=== PATIENT | male | born 1980 | race Caucasian/White ===

== ENCOUNTER 2021-02-09 14:23 | Emergency (ER) | payer OTHER ==
[2021-02-09 16:31] LABS: HEMOGLOBIN 17.4 gm/dl (14.0-17.5); RED BLOOD COUNT 5.72 M/UL (4.20-5.50); WHITE BLOOD COUNT 7.1 K/UL (4.5-11.0)
[2021-02-09 16:56] LABS: BUN/CREATININE RATIO 29 (0-10)
[2021-02-09] MEDS ORDERED: FLORASTOR250 MG PO (18:38)
[2021-02-09] MEDS ORDERED: ZOFRAN ODT 4 MG4 MG SL (18:38)
== END 2021-02-09 19:15 | disposition home or self-care (01) ==
LOC: ER1 14:23
PROVIDERS: Emergency Medicine
DX: K52.9 Noninfective gastroenteritis and colitis, unspecified (principal); F17.200 Nicotine dependence, unspecified, uncomplicated; Z20.822 Contact with and (suspected) exposure to COVID-19
CPT/HCPCS: 71045; 80053; 83605; 83735; 84100; 85025; 87040; 96374; 96376; 99284; J2405; Q9967; U0002

== ENCOUNTER 2021-10-17 09:06 | Emergency (ER) | payer OTHER ==
[~2021-10-17 09:06] MED LIST: FLORASTOR250 MG PO; ZOFRAN ODT 4 MG4 MG SL
[2021-10-17 09:53] LABS: HEMOGLOBIN 18.6 gm/dl (14.0-17.5); RED BLOOD COUNT 5.67 M/UL (4.20-5.50); WHITE BLOOD COUNT 11.8 K/UL (4.5-11.0)
[2021-10-17 10:10] LABS: BUN/CREATININE RATIO 21 (0-10)
[2021-10-17] MEDS ORDERED: ZOFRAN ODT 4 MG4 MG SL (12:56)
[2021-10-17] MEDS ORDERED: ANTI-DIARRHEAL2 MG PO (12:56)
== END 2021-10-17 13:20 | disposition home or self-care (01) ==
LOC: ER1 09:06
PROVIDERS: Student in an Organized Health Care Education/Training Program
DX: R11.2 Nausea with vomiting, unspecified (principal); R19.7 Diarrhea, unspecified; I10 Essential (primary) hypertension; F17.200 Nicotine dependence, unspecified, uncomplicated
CPT/HCPCS: 80053; 83605; 83690; 85025; 96374; 99284; J2405